=== PATIENT | male | born 1935 | race Caucasian/White ===

== ENCOUNTER 2025-03-08 15:00 | Emergency (ER) | payer MEDICARE, BC ==
[2025-03-08] MEDS: Lidocaine 1% with EPINEPHrine 1:100,000 20 ML MDV INJECT ONE (16:00)
[2025-03-08] MEDS: Bacitracin/Neomycin/Polymyxin B Oint 0.9 GM U/D Packet TOP ONE (16:12)
== END 2025-03-08 16:16 | disposition home or self-care (01) ==
LOC: KA.ED 15:04
DX: S01.01XA Laceration without foreign body of scalp, initial encounter (principal); S61.412A Laceration without foreign body of left hand, initial encounter; Z79.82 Long term (current) use of aspirin; Z79.899 Other long term (current) drug therapy; W01.0XXA Fall on same level from slipping, tripping and stumbling without subsequent striking against object, initial encounter; Y93.01 Activity, walking, marching and hiking
CPT/HCPCS: 12002; 99282; 99283; J2004